=== PATIENT | female | born 1955 | race Caucasian/White ===

== ENCOUNTER 2020-11-12 09:56 | Emergency (ER) | payer MEDICARE, OTHER, SELFPAY ==
[2020-11-12 10:08] VITALS: BP 137/60; PULSE 85; RESP 19; TEMP 36.9; O2SAT 100; BMI 28.0
--- NOTE | 2020-11-12 10:21 | [facility].EDUTC ---
[facility] [place] Disposition Clinical Impression: Exposure to COVID-19 virus Sinusitis Qualifiers: Sinusitis location: unspecified location Chronicity: acute Recurrence: non-recurrent Qualified Code(s): J01.90 - Acute sinusitis, unspecified Disposition: Home, Self-Care Condition on Discharge: Good Instructions: Sinusitis, DI for Sinusitis, DI for COVID-19 (Suspected or Confirmed ), Preventing the Spread of Coronavirus Discharge Instructions Additional Instructions: Drink plenty of fluids. Take tylenol or ibuprofen for pain or fever. Take the medications as directed. Follow up with your regular doctor. GO TO THE ER FOR ANY WORSENING SYMPTOMS The cough medication (promethazine dm) will make you drowsy, so don't drive or operate heavy machinery after taking it. Prescriptions: Promethazine/Dextromethorphan [Promethazine-Dm Syrup] 5 ml PO Q6HP PRN #240 syrup PRN Reason: Cough [facility] predniSONE [Deltasone 10mg tablet] 10 mg PO BID 5 Days #10 tab Transmission Status: [facility] Cefdinir [Omnicef 300mg Capsule] 300 mg PO BID #20 cap Transmission Status: Received by [facility] Benzonatate [Tessalon Perle 100mg Cap] 100 mg PO TIDP PRN #30 cap PRN Reason: Cough [facility] Status: [facility] Referrals: Lalitha La APRN [Primary Care Provider] - Time of Disposition: 10:26 Medical Decision Making - Medical Records Medical records reviewed: No: I reviewed the patient's medical records. - Connor Inquiry Pt receiving controlled substance: No Vital Signs: 11/12/20 10:08 11/12/20 10:30 Temperature 98.4 F 98.4 F Temperature Source Oral Pulse Rate 85 Pulse Rate [Left] 85 Respiratory Rate 19 19 Blood Pressure 137/60 Blood Pressure [Right Arm] 137/60 Blood Pressure Mean [Right Arm] 85 Blood Pressure Source [Right Arm] Automatic Cuff Blood Pressure Position [Right Arm] Sitting 02 Sat by Pulse Oximetry 100 Oxygen Delivery Method Room Air Orders (Tests/Meds): ORDERS Category Date Time Status Covid-19 Nasal PCR Sendout P&C Stat Lab 11/12/20 10:02 Received [facility] [place] HPI - General Stated complaint: covid exposure,sinus problems Time Seen by Provider: 11/12/20 10:21 Mode of Arrival: Ambulatory Source of Information: Patient Limitations: No Limitations Description of Symptoms (Recalled from Triage Doc. by RN): Covid testing-exposure no symptoms HEENT Symptoms (Recalled from RN notes): No Resp Symptoms (Recalled from RN notes): Yes Skin Symptoms (Recalled from RN notes): No MS Symptoms (Recalled from RN notes): No Functional Status (Recalled from RN notes): wnl - History of Present Illness Provider Complaint: She complains of sinus congestion for the past 1 week. She states that she gets this at least once per year. Her son in law does have covid at this time. - Related Data Previous Rx's Medication Instructions Recorded Benzonatate [Tessalon Perle 100mg 100 mg PO TIDP PRN #30 cap 11/12/20 Cap] Cefdinir [Omnicef 300mg Capsule] 300 mg PO BID #20 cap 11/12/20 Promethazine/Dextromethorphan 5 ml PO Q6HP PRN #240 syrup 11/12/20 [Promethazine-Dm Syrup] predniSONE [Deltasone 10mg tablet] 10 mg PO BID 5 Days #10 tab 11/12/20 Allergies Allergy/AdvReac Type Severity Reaction Status Date / Time Sulfa (Sulfonamide Allergy Severe unknown Verified 11/12/20 10:22 Antibiotics) erythromycin base Allergy Unknown Verified 11/12/20 10:22 Penicillins Allergy Unknown Verified 11/12/20 10:22 - Worker's Comp Is this a Worker's Comp case?: No Is this an [facility] Worker's Comp?: No Is this a Lisa Worker's Comp?: No H History - Hepatitis A Screen Drug use history?: No High risk sexual behaviors?: No History of sexually transmitted infection?: No Currently employed?: No Childcare worker?: No Do you have indoor plumbing?: Yes Do you have electricity?: Yes Attestation s
[2020-11-12 10:30] VITALS: BP 137/60; PULSE 85; RESP 19; TEMP 36.9; O2SAT 100
[2020-11-13 09:50] LABS: Covid-19 Nasal PCR Sendout P&C Negative
== END 2020-11-12 10:31 | disposition home or self-care (01) ==
PROVIDERS: Emergency Provider Nurse Practitioner Family; PCP Nurse Practitioner
DX: Z20.828 Contact with and (suspected) exposure to other viral communicable diseases (principal); J01.90 Acute sinusitis, unspecified; Z88.0 Allergy status to penicillin; Z88.2 Allergy status to sulfonamides
CPT/HCPCS: G0463; 99203; U0004